=== PATIENT | female | born 2000 | race Caucasian/White ===

== ENCOUNTER 2022-08-19 18:52 | Inpatient (IN) | payer OTHER ==
[2022-08-19] MEDS ORDERED: Acetaminophen 325 MG Tab PO PRN (19:25)
[2022-08-19] MEDS ORDERED: Nalbuphine 10 MG/0.5 ML Syringe IVPUSH PRN (19:25)
[2022-08-19] MEDS ORDERED: Calcium Carbonate 500 MG Tab.Chew PO PRN (19:25)
[2022-08-19] MEDS ORDERED: Ondansetron 4 MG/2 ML SDV IVPUSH PRN (19:25)
[2022-08-19] MEDS ORDERED: Oxytocin/Lactated Ringers 10 UNIT/1,000 ML BAG IV SCH ×2 (19:30)
[2022-08-19] MEDS: Lactated Ringers 1,000 ML IV SCH ×3 (20:09→23:52)
[2022-08-19] MEDS ORDERED: Sodium Chloride 0.9% 10 ML Syringe FLUSH SCH (21:00)
[2022-08-19] MEDS ORDERED: fentaNYL 100 MCG/2 ML SDV EPIDUR PRN (22:02)
[2022-08-19] MEDS ORDERED: ePHEDrine 50 MG/ML SDV IVPUSH PRN (22:02)
[2022-08-19] MEDS ORDERED: diphenhydrAMINE 50 MG/ML SDV IVPUSH PRN (22:02)
[2022-08-19] MEDS: Bupivacaine/fentaNYL/NS 100 ML Bag EPIDUR PRN (22:17)
[2022-08-20] MEDS ORDERED: Bupivacaine 0.25% 10 ML SDV ONE
[2022-08-20] MEDS: Bupivacaine/fentaNYL/NS 100 ML Bag EPIDUR PRN (05:32)
[2022-08-20] MEDS ORDERED: Methylergonovine 0.2 MG/1 ML Amp IM ONE (06:21)
[2022-08-20] MEDS ORDERED: Witch Hazel Medicated Pads 40/Jar TOP PRN (06:45)
[2022-08-20] MEDS ORDERED: Acetaminophen 325 MG Tab PO PRN (06:45)
[2022-08-20] MEDS ORDERED: Benzocaine/Menthol 20%-0.5% Spray 78 GM Cannister TOP PRN (06:45)
[2022-08-20] MEDS ORDERED: Docusate Sodium 100 MG Cap PO PRN (06:45)
[2022-08-20] MEDS: Ibuprofen 600 MG Tab PO PRN ×2 (09:09→20:43)
[2022-08-20] MEDS: Prenatal Multivitamin with Calcium/Folic Acid/Iron Tab PO SCH (09:10)
[2022-08-21] MEDS: Ibuprofen 600 MG Tab PO PRN (04:25)
[2022-08-21] MEDS: Prenatal Multivitamin with Calcium/Folic Acid/Iron Tab PO SCH (12:14)
== END 2022-08-21 11:46 | disposition home or self-care (01) | DRG 806 ==
LOC: JD.OBCHECK 18:52 → JD.OB 19:02 → JD.OBCHECK 19:24 → JD.OB 19:25 → OBSVTOIN 08-20 06:06 → JD.OB 08-20 06:07
PROVIDERS: ADMIT Obstetrics & Gynecology; ATTEND Obstetrics & Gynecology
PROC: 10E0XZZ Delivery of Products of Conception, External Approach (ICD-10-PCS; principal; 2022-08-20)
PROC: 10907ZC Drainage of Amniotic Fluid, Therapeutic from Products of Conception, Via Natural or Artificial Opening (ICD-10-PCS; 2022-08-20)
PROC: 3E0R3BZ Introduction of Anesthetic Agent into Spinal Canal, Percutaneous Approach (ICD-10-PCS; 2022-08-20)
PROC: 00HU33Z Insertion of Infusion Device into Spinal Canal, Percutaneous Approach (ICD-10-PCS; 2022-08-20)
PROC: 3E033VJ Introduction of Other Hormone into Peripheral Vein, Percutaneous Approach (ICD-10-PCS; 2022-08-20)
DX: O99.344 Other mental disorders complicating childbirth (principal); O72.1 Other immediate postpartum hemorrhage; Z37.0 Single live birth; F32.A Depression, unspecified; F41.9 Anxiety disorder, unspecified; O99.62 Diseases of the digestive system complicating childbirth; K21.9 Gastro-esophageal reflux disease without esophagitis; O99.52 Diseases of the respiratory system complicating childbirth; J45.909 Unspecified asthma, uncomplicated; Z3A.39 39 weeks gestation of pregnancy
CPT/HCPCS: 01967; 36415; 51702; 59025; 59409; 85025; 86592; 86850; 86900; 86901; A9270-GY; J1200; J2210; J2405; J2590; J3010; J3490; J7120